=== PATIENT | female | born 1965 | race Caucasian/White ===

== ENCOUNTER 2020-05-11 06:22 | Observation (INO) | payer BC ==
[~2020-05-11] VITALS: Ht 170.2 cm; Wt 106.0 kg
--- NOTE | 2020-05-11 08:00 | NUR ---
PATIENT IS A DIRECT ADMIT FROM [place] BY POV. ADMITTED INTO ROOM 324. A&O. VSS. PATIENT REPORTS LEFT FLANK PAIN IS MANAGED AT THIS TIME. UROLOGY NOTIFIED OF ARRIVAL. HEAD TO TOE ASSESSMENT WNL. NPO. IV FLUIDS INFUSING INTO RIGHT HAND IV. NO C/O N/V. PRE-OP COVID SWAB OBTAINED AND SENT TO LAB. CONSENT ON CHART. AT BEDSIDE.
[2020-05-11 08:10] VITALS: BP 141/70; PULSE 77; TEMP 98.3
[2020-05-11] MEDS ORDERED: GLUCOPHAGE500 MG/TAB PO (08:50)
[2020-05-11] MEDS ORDERED: ONE-A-DAY ESSE1 EACH PO (08:51)
--- NOTE | 2020-05-11 09:26 | NUR ---
LUZ met with the patient and her , Cathie (ph#[phone]), to discuss discharge plan. The patient lives in [place] with her . She reports independence with ADLs and does not have any DME. The patient's PCP is Dr. Rosa Costello and she receives her medications at [facility]. She reports no difficulties obtaining her meds. The patient does not have a DPOA-HC and she was not interested in completing a DPOA-HC at this time. The patient plans to return home with her upon discharge. No additional needs at this time.
[2020-05-11 12:10] VITALS: BP 134/67; PULSE 68; TEMP 97.6
--- NOTE | 2020-05-11 13:32 | NUR ---
PATIENT GOING DOWN TO OR VIA BED. AT BEDSIDE.
[2020-05-11 14:41] VITALS: TEMP 98.3
--- NOTE | 2020-05-11 15:10 | NUR ---
Pt arrived to the floor from pacu. She is awake, alert and oriented. Her is present in the room. No complaints of pain. Gave her ice water and jello. is present in the room. Assisted her to the restroom and was steady ambulating.
[2020-05-11 15:30] VITALS: BP 124/69; PULSE 73
[2020-05-11 15:45] VITALS: BP 118/63; PULSE 76
--- NOTE | 2020-05-11 16:00 | NUR ---
PATIENT DISCHARGING HOME VIA WC TO PERSONAL VEHICLE WITH . PATIENT HAS MEET DISCHARGE CRITERIA OF EAT/DRINK/VOID/PAIN MANAGED. GAVE DISCHARGE INSTRUCTIONS, PRESCRIPTIONS, AND F/U APT. ANSWERED QUESTIONS/CONERNS. DC'D RIGHT HAND IV, COVERED SITE WITH GAUZE & COBAN. PATIENT DRESSED AND PERSONAL BELONGINGS PACKED. ESCORTED OUT.
== END 2020-05-11 16:00 | disposition home or self-care (01) ==
LOC: MEDICAL 06:22 → SURG 07:49
PROVIDERS: ADMIT Urology
DX: N13.2 Hydronephrosis with renal and ureteral calculous obstruction (principal); E11.9 Type 2 diabetes mellitus without complications; Z79.84 Long term (current) use of oral hypoglycemic drugs; Z20.828 Contact with and (suspected) exposure to other viral communicable diseases
CPT/HCPCS: C1769; C2617; G0378; J0690; J2405; J2704; J3010; J7030; Q9967

== ENCOUNTER 2021-10-14 14:03 | Day surgery (SDC) | payer BC ==
[~2021-10-14] VITALS: Ht 170.2 cm; Wt 98.2 kg
[~2021-10-14 14:03] MED LIST: GLUCOPHAGE500 MG/TAB PO; ONE-A-DAY ESSE1 EACH PO
[2021-10-14] MEDS ORDERED: PERCOCET 325 MG1 TA2 PO (14:30)
[2021-10-14] MEDS ORDERED: FLOMAX 0.40.4 MG/CAP PO (14:30)
[2021-10-14 14:42] VITALS: BP 153/84; PULSE 77; TEMP 98.3
[2021-10-14 17:00] VITALS: BP 118/73; PULSE 62
[2021-10-14 17:15] VITALS: BP 120/75; PULSE 56
[2021-10-14 17:30] VITALS: BP 120/67; PULSE 57
[2021-10-14 17:33] VITALS: BP 118/73; PULSE 61; TEMP 98.3
--- NOTE | 2021-10-14 17:51 | NUR ---
Patient post op to room 328. She voided upon arrival without difficulty. She had a light snack without nausea & tolerating fluids. Denies pain. Patient reports feeling well & wanting to get home to watch [employer] basketball. Patient dressed & discharge paperwork reviewed. Patietn spouse taking her home. Program Clerk wheeled her out with all belongings.
== END 2021-10-14 17:54 | disposition home or self-care (01) ==
LOC: SDCO 14:03 → SURG 17:21 → SDCO 17:54
DX: N20.2 Calculus of kidney with calculus of ureter (principal); Z86.16 Personal history of COVID-19
CPT/HCPCS: OP; C1769; J0690; J1100; J1885; J2405; J2704; J3010; J7120; Q9967